=== PATIENT | male | born 1980 | race Caucasian/White ===

== ENCOUNTER → 2020-11-19 10:14 | Outpatient (BNVA) | payer OTHER, SELFPAY | PROVIDERS: PCP Family Medicine; Referring Provider Family Medicine; Visit Provider Anesthesiology Pain Medicine | DX: G89.29 Other chronic pain (principal); M54.5 Low back pain; Z79.891 Long term (current) use of opiate analgesic; Z87.891 Personal history of nicotine dependence | CPT/HCPCS: 72110; 99204 ==

== ENCOUNTER → 2021-02-02 08:28 | Outpatient (BNVA) | payer SELFPAY | PROVIDERS: PCP Family Medicine; Visit Provider Orthopaedic Surgery | DX: Z01.812 Encounter for preprocedural laboratory examination (principal); Z20.822 Contact with and (suspected) exposure to COVID-19 | CPT/HCPCS: 87635 ==

== ENCOUNTER 2021-02-08 12:55 | Observation (INO) | payer SELFPAY ==
[2021-02-05 12:30] VITALS: BMI 28.4
--- NOTE | 2021-02-05 13:24 | ANES.PREANE2 ---
Pre-Anesthetic Assessment Pre-Anesthetic Assessment: Height/Weight: Height 1.96 m Weight 108.862 kg Preop Diagnosis: l4/5 spondylolisthesis Proposed Procedure: Operation Date: 02/08/21 10:00 Proposed Procedures p PLIF L4/5 42750, 75290, 84779, 78591, 89239, 19219 M43.10 M48.061(Not Applicable) - Merritt Rocha, DO Was Beta Elver taken within 24 hours: N/A Was Clonidine taken within 24 hours: N/A Social: Social History: Tobacco and No alcohol Exam: Pre-Anes Outpt Exam: alert, oriented x 3 and regular rate & rhythm Airway: Submandibular: WNL Cervical ROM: WNL MP: 2 Dentition: Chipped Additional comments: Very poor dentition, multiple caries and missing Pulmonary: Pulmonary: COPD CV/HEM: CV/HEM: HTN Metabolic: Metabolic: Morbid obesity Musc/skel: Musc/skel: Lower Back Pain and OA/DJD Anesthetic Plan: ASA status: 3 Anesthesia: General Risk of > 500 ml blood loss (7ml/kg in children): No PFSH Anesthesia PFSH: Family History Grandmother Cancer Social History Second hand smoke exposure: No Alcohol intake: never Data Anesthesia Cardiac Studies: No Data to Display
[2021-02-08] VITALS (15 sets, daily range): BP systolic 126–175; BP diastolic 79–142; PULSE 76–106; RESP 14–19; TEMP 36.4–37; O2SAT 93–100; BMI 28.4
--- NOTE | 2021-02-08 | SCC_ITS ---
Procedure Done: 1. L4/5 Interbody fusion with posterolateral fusion 2. Instrumentation L4/5 3. Cage at L4/5 4. Laminectomy L4 5. use of autograft from same incision 6. allograft 7. Bone marrow aspirate from right iliac crest through separate incision in fascia 8. Computer navigation / stereotactic of spine 18 seconds of fluoroscopic guidance, for a cumulative dose of 39.4 mGy, was provided to Dr. Rocha by the radiology department. C-arm images of the lumbar spine were saved for the patient's permanent record. ARAVIND
--- NOTE | 2021-02-08 | XR_ITS ---
WS: [id number] XR lumbar spine 1V port 76914 REASON FOR EXAM: JOCELINE PICS FINDINGS: Multiple AP and lateral images of the thoracic spine in surgery. Localization of the L4-L5 disc space. Bilateral pedicle screw placement at L4 and L5. Interbody fusion device placed within the L4-L5 disc space. Surgical appliances appear in proper position and alignment. XR/XR lumbar spine 1V port [id number] IMPRESSION: Pedicle screw and interbody fusion device placement L4-L5.
[2021-02-08] MEDS: sodium chloride 0.9% 1,000 ML 30 ML IV (08:38)
--- NOTE | 2021-02-08 09:20 | P.ANESUD_ITS ---
Pre-Anesthetic Update Pre-Anesthetic Assessment: Date of Surgery/Procedure: 02/08/21 Preop Hilaria gnosis: l4/5 spondylolisthesis Proposed Procedure: Operation Date: 02/08/21 10:00 Proposed Procedures p PLIF L4/5 24156, 52576, 54188, 97078, 94069, 76831 M43.10 M48.061(Not Applicable) - Merritt Rocha, DO Any changes to Pre-Anesthetic Assessment?: No Last Intake: Intake Last Liquid Date 01/28/21 Last Liquid Time 20:00 Last Solid Date 02/07/21 Last Solid Time 20:00 Vitals: Temperature 97.7 F 02/08/21 08:22 Temperature Source Temporal Artery S can 02/08/21 08:22 Pulse Rate 76 02/08/21 08:22 Respiratory Rate 17 02/08/21 08:22 Blood Pressure 144/106 02/08/21 08:22 Blood Pressure Missy n 118 02/08/21 08:22 Pulse Oximetry 97 02/08/21 08:22 Oxygen Delivery Me thod 02/08/21 08:29 Exam: Pre-Anes Outpt Exam: alert, oriented x 3, clear to auscultation bilaterally and regular rate & rhythm Cardiac Studies: No Data to Display
--- NOTE | 2021-02-08 09:21 | PM.HP ---
Providers/Chief Complaint Primary Care Provider: Kenneth Rainey Chief Complaint: plif History of Present Illness Hank Grajeda is a 41 year old male is here due to low back pain Onset: [gradual Duration: [years Characteristics: [sharp, dull, achey Severity: [mild to moderate Location: [lower back Radiating symptoms: [hips Aggravating factors: [standing, walking, lifting, laying Alleviating factors: [none Neuro deficits: [] denies numbness, tingling, weakness, incontinence of bowel/bladder, saddle anesthesia. Prior tx: [pain management consult Review of Systems Narrative: General ROS: negative for weight changes, fever ENT ROS: negative for nasal congestion, drainage or bleeding, sore throat, dysphagia or ear pain Eyes: PERRL Hematological and Lymphatic ROS: negative for swollen glands or abnormal bleeding Endocrine ROS: negative for polyuria/polydpsia or new changes in weight Respiratory ROS: negative for cough, shortness of breath, or wheezing Cardiovascular ROS: negative for chest pain or dyspnea on exertion Gastrointestinal ROS: negative for reflux, abdominal pain, change in bowel habits, or black or bloody stools Musculoskeletal ROS: negative for back pain, neck pain, or joint pain or swelling except for current problem Neurological ROS: negative for TIA or stoke symptoms Skin: no rashes Medications/Allergies Home Medications Medication Instructions Recorded Confirmed Last Taken Type cyclobenzaprine 10 mg tablet 10 mg PO TID 11/19/20 02/08/21 02/07/21 History famotidine 20 mg tablet 20 mg PO DAILY 11/19/20 02/08/21 02/07/21 History gabapentin 100 mg capsule 200 mg PO BEDTIME 11/19/20 02/08/21 02/07/21 History lisinopril 20 mg tablet 20 mg PO DAILY 11/19/20 02/08/21 02/07/21 History multivitamin with minerals 1 tab PO DAILY 11/19/20 02/08/21 02/07/21 History E0748 Bone growth stimulator #1 ea 01/29/21 Unknown Rx Allergies Allergy/AdvReac Type Severity Reaction Status Date / Time tramadol Allergy ADR-Vomitin Verified 02/05/21 12:25 g PFSH Acute PFSH: Family History Grandmother Cancer Social History Second hand smoke exposure: No Alcohol intake: never Vitals/I&O/Wt Last Vital Signs Temp 97.7 F 02/08/21 08:22 Pulse 76 02/08/21 08:22 Resp 17 02/08/21 08:22 BP 144/106 02/08/21 08:22 Pulse Ox 97 02/08/21 08:22 Physical Exam Narrative: EXAM NARRATIVE: CONSTITUTIONAL: The patient is a normal appearing [] in no apparent distress. GENERAL: Patient in no acute distress. CARDIAC: Regular rate and rhythm. CHEST: Normal inspiratory effort, normal respiratory rate. ABDOMEN: Soft and nontender. SKIN: Clear, warm and intact. NEURO?PSYCH: The patient is alert and oriented to person, place and time. Sensorv /SILT Motor StrengthShoulder abduction C5 5/5Wrist extension C6 5/5Elbow extension C7 5/5Hand [employer] V[employer] Installer C8 5/5Finger abduction T15/5 Radial/ Ulnar/ Median n intact LowerSensory (SILT)Motor StrengthHin flexion L2/3Ant/inner thigh 5/5Hip adduction L2/3 5/5Knee extension L4 Lat thigh, 5/5Toe dorsiflexion L5 5/5Ankle dorsiflexion L5/ D99Ssymect flexion S1 5/5 DTRBleeps 2+Triceps 2+Brachioradialis 2+Patellar 2+Achilles 2+ MUSCULOSKELETAL: [] UPPEREXTREMITIES: The patient had full active ROM in fingers, wrist, elbow, and shoulder. The patient demonstrated ability to fully flex/extend/abduct/adduct fingers, make ok sign, cross 2nd/3rd digits, extend 1st digit fully.. Radial pulse 2+, CR<2 seconds. LOWER EXTREMITIES: Pt has full, active ROM of toes, ankle, knee, and hip. Dorsalis pedis/posterior tibialis pulses 2+, CR<2 seconds. SPINE: Skin warm, dry, intact. A&P Assessment and plan (1) Spondylolisthesis at L4-L5 level: L4/5 PLIF Status: Acute Attestations Medical Necessity Statement*: failed conservative tx Coding Level of Care Code Acute Retail Sales Specialist for [facility] Diagnoses Spondylolisthesis at L4-L5 level M43.16
--- NOTE | 2021-02-08 09:24 | P.HPUD_ITS ---
Surgery/Procedure H&P Update DATE OF PROCEDURE: February 08, 2021 DATE H&P PERFORMED: 02/08/21 PREOP DIAGNOSIS: l4/5 spondylolisthesis PLANNED PROCEDURE: Operation Date: 02/08/21 10:00 Proposed Procedures p PLIF L4/5 22903, 03098, 79579, 60448, 07155, M43.10 M48.061(Not Applicable) - Merritt Rocha, DO
--- NOTE | 2021-02-08 09:24 | W.PM.OPSUD ---
Surgery/Procedure H&P Update DATE OF PROCEDURE: February 08, 2021 DATE H&P PERFORMED: 02/08/21 PREOP DIAGNOSIS: l4/5 spondylolisthesis PLANNED PROCEDURE: Operation Date: 02/08/21 10:00 Proposed Procedures p PLIF L4/5 01890, 90702, 98595, 44824, 50984, M43.10 M48.061(Not Applicable) - Merritt Rocha, DO
[2021-02-08] MEDS: heparin, porcine 1,000 unit/mL INJ 10 mL 10000 UNIT IRRIGATION (11:06)
[2021-02-08] MEDS: vancomycin 1,000 MG SDV 1000 MG XX (12:27)
--- NOTE | 2021-02-08 13:09 | PM.OP ---
Operative Report Date of procedure: February 08, 2021 Pre-op Diagnosis: l4/5 spondylolisthesis Post-op diagnosis: same Procedure Done: 1. L4/5 Interbody fusion with posterolateral fusion 2. Instrumentation L4/5 3. Cage at L4/5 4. Laminectomy L4 5. use of autograft from same incision 6. allograft 7. Bone marrow aspirate from right iliac crest through separate incision in fascia 8. Computer navigation / stereotactic of spine Estimated blood loss (mL): 150 Condition: stable Disposition: PACU Procedure: 1. L4/5 Interbody fusion with posterolateral fusion 2. Instrumentation L4/5 3. Cage at L4/5 4. Laminectomy L4 5. use of autograft from same incision 6. allograft 7. Bone marrow aspirate from right iliac crest through separate incision in fascia 8. Computer navigation / stereotactic of spine Patient is brought to the operative suite. After undergoing anesthesia, the patient had neuro monitoring attached. Patient was then placed in the prone position on the Yuri table. All areas of impingement were well-padded. Patient was then prepped and draped in the normal sterile fashion. Skin incision was then made over the L4/5 space. Subperiosteal dissection was made out to the transverse processes of L4 and L5. Once the exposure was complete attention was then brought to placing the fiducials for the computer navigation. 2 pins were placed into the right iliac crest. It is attached to the fiducial. The fiducial was then connected. Prior to spinning the C arm the FIGS bone marrow aspirate kit was used to aspirate bone marrow aspirate from the right iliac crest. This was done by using the sharp probe to open up the bone in right iliac crest. Aspiration was performed and then the blunt probe was then used to dissect down to through the bone tunnel. An aspirating well drawn back a millimeter approximately 20 cc of bone marrow aspirate was used. Admixed with the allograft and autograft bone that will be used. The C-arm was then spun and then the information was loaded in the computer. This information was then allowed to be used to load to the gearshift and the pedicle screw. The technique for placing the pedicle screws was to use a drill followed by the gearshift probe attached to the computer navigation. Followed by the ball probe to feel the superior inferior medial lateral sanz of the pedicles. Then placement of the screws using the computer navigation. Was done at each pedicle. Screws were placed at L4 bilaterally and L5. Next attention was brought to performing the laminectomy of L4. This was done using the high-speed bur Kerrisons and curettes. Once the lamina was removed and then attention was brought to performing a partial facetectomy on the contralateral side. This was done again using the high-speed bur curettes and Kerrisons. The ligamentum flavum was taken down bilaterally from L4 to L5. Attention was then brought to the facet on the ipsilateral side. The facet was taken down. The L5 nerve was decompressed as it passed around the L5 pedicle. The laminectomy was done for purposes of decompressing the nerve as well as placement of the cage. The L4 nerve was identified as it traversed through the L4/5 foramen. The thecal sac was identified and retracted. The L4/5 disc base was identified. Using a knife the disc base was opened. And then sequential savanah were placed. The first shaver was a 6 and the last shaver was a 10. Using a pituitary and down going curette the endplates were scraped and disc material was removed from the space. Once adequate decompression of the disc base was felt to be had. Osteoamp sponge was packed into the anterior aspect of the disc base. Then a size 10 cage from [employer] was placed after packing osteoamp into the cage. While placing the cage the thecal sac and L5 nerve was protected. C arm was used to ensure that the cages placed in the appropriate position. Attention was then brought to attaching the rods to the screws placed in the L4 bilaterally and L5. Caps were torqued into position. Locking the construct in place. Wound was copiously irrigated and then attention was brought to decorticating the facets and transverse processes laterally. Bone that was taken down from the lamina was used along with osteoamp fibers and sponges were packed into the lateral gutters along the facet joints. This was done bilaterally. Wound was then closed in a layered fashion starting with the thoracolumbar fascia. 0-vicryl was used the sub cutaneous tissue was closed with 2-0 vicryl and skin with 4-0 monocryl. Glue was then used to seal the skin and a steril dressing was applied. Patient was then placed in the supine position. The endotracheal tube was removed and patient was transferred to the PACU in stable condition.
--- NOTE | 2021-02-08 13:27 | SUR.PHASEI ---
1313 PT TO PACU WILD TRYING TO GET UP SWINGING FISTS AT STAFF, YELLING (GET OFF OF ME, LET ME UP) IV OUT PER PT, PT UNRESPONSIVE TO REORIENTATION, UNABLE TO GET VS, PT COLOR PINK WARM , GOOD RESP EFFORT PT ABLE TO YELL LOUDLY AND MOVES ALL EXT PER SELF.
[2021-02-08] MEDS: HYDROmorphone 1 mg/mL INJ 1 mL 0.5 MG IVP (13:47)
--- NOTE | 2021-02-08 14:43 | SUR.PHASEI ---
1400 PT AWAKE ALERT VERY COOPERATIVE SEE PAIN MED GIVEN EARLIER IV ADJUSTED AND RETAPED TO RT HAND NOW PATENT SEE MED GIVEN, VSS PT STATES PAIN IS BETTER, PT DOZES IF NOT DISTURBED REPORT CALLED TO FLOOR AND PT FATHER UPDATED AND WILL WALK UP TO ROOME 267 WITH RN AND PT TO ROOM PER BED.
[2021-02-08] MEDS: ketorolac 30 mg/mL INJ IVP ×2 (14:59→20:37)
[2021-02-08] MEDS: lactated ringers 1,000 ML 90 ML IV (14:59)
[2021-02-08] MEDS: cyclobenzaprine 10 mg Tablet PO ×2 (15:00→20:28)
[2021-02-08] MEDS: HYDROcodone-acetaminophen 5-325 mg Tablet PO ×3 (15:00→23:23)
--- NOTE | 2021-02-08 15:00 | ANE.PACU2 ---
Inpatient post-anesthesia follow up: Airway intact: Yes Vital signs: Temperature 98.6 F Pulse Rate 101 Respiratory Rate 14 Blood Pressure 126/79 Pulse Oximetry 98 Oxygen Delivery Me thod Nasal Cannula Oxygen Flow Rate 3 Fraction of Inspir ed Oxygen Hydration adequate: Yes Nausea and vomiting: No Pain level: 2 Mental status: Baseline
[2021-02-08] MEDS: docusate sodium 100 mg Capsule PO (17:34)
[2021-02-08] MEDS: gabapentin 100 mg Capsule 200 MG PO (20:28)
[2021-02-09] VITALS: BP 132/68; PULSE 96; RESP 18; TEMP 36.4; O2SAT 96
[2021-02-09] MEDS: lactated ringers 1,000 ML 90 ML IV (01:53)
[2021-02-09] MEDS: HYDROcodone-acetaminophen 5-325 mg Tablet PO ×2 (03:48→09:13)
[2021-02-09 04:00] VITALS: BP 128/71; PULSE 94; RESP 18; TEMP 36.6; O2SAT 95
--- NOTE | 2021-02-09 05:01 | PC.NURSE ---
SHIFT SUMMARY Has had a good night. Has received po Hydrocodone X3 q4h and IV Toradol X2 tonight for back pain. Dressing to lower back is D&I. Hemovac drain in place and has had 110ml sanguinous drainage this shift. Taking po fluids well and has urinated several times with good urine output. Gets up to bathroom and uses urinal. Has also ambulated in [place] and been up in chair. IV fluids infusing at 90ml/hr rate and receiving postop IV antibiotics as ordered
[2021-02-09] MEDS: ketorolac 30 mg/mL INJ IVP (05:05)
--- NOTE | 2021-02-09 07:14 | P.DS_ITS ---
Discharge Providers Date of Admission: 02/08/21 12:55 Date of Discharge: February 09, 2021 Attending Provider at Admission: Merritt Rocha DO Attending Provider at Discharge: Merritt Rocha DO Primary Care Provider: Kenneth Rainey Diagnoses at Discharge Discharge Diagnosis (1) Spondylolisthesis at L4-L5 level: Status: Acute Reason for Visit Reason for Visit: plif Hospital Course Hospital Course Patient sitting in chair comfortably no complaints at this time. Discharge Data Data Completed and Pending: Completed Studies During Hospitalization Category Date Time Status XR lumbar spine 1 V port [id number] Routi ne Exams 02/08/21 Completed Pending at discharge Category Date Time Status C-arm Fluoroscopy 13578 Routine Exams 02/08/21 08:22 Taken Vitals: Last Vital Signs Temp 97.9 F 02/09/21 04:00 Pulse 94 02/09/21 04:00 Resp 18 02/09/21 04:00 BP 128/71 02/09/21 04:00 Pulse Ox 95 02/09/21 04:00 Discharge Plan Discharge Patient Disposition: Home Condition: Stable Prescriptions: New hydrocodone-acetaminophen 5-325 mg tablet 1 - 2 tab PO .Q4-6H Qty: 40 RF: 0 Continued cyclobenzaprine 10 mg tablet 10 mg PO TID RF: 0 gabapentin 100 mg capsule 200 mg PO BEDTIME RF: 0 lisinopril 20 mg tablet 20 mg PO DAILY RF: 0 famotidine 20 mg tablet 20 mg PO DAILY RF: 0 multivitamin with minerals [Men's One Daily] Tablet 1 tab PO DAILY RF: 0 (DME) E0748 Bone growth stimulator See Rx Instructions .Route .MEDSUPPLY Qty: 1 RF: 0 Discharge Orders: Discharge Order (Routine); Ordered 02/09/21 Ordered By: Merritt Rocha Discharge Diet: Advance as tolerated Discharge Activity: Limit activity as instructed Patient Instructions: Opioid Safety Activity Restrictions/Additional Instructions: Thank you for [facility] for your care! The following is a list of instructions, from your provider, to follow upon your discharge to ensure you have the optimal recovery from your recent injury orsurgery. Follow-up care is a harrell part of your treatment and safety. Be sure to make and go to all appointments, and call your doctor if you are having problems. If you do not already have a follow-up appointment made, call Dr. Rocha office in the next 1-3 days to make follow up appointment for 1 weeks at [phone]. It is also a good idea to know your test results and keep a list of the medicines you take. Medications will be prescribed for you at your provider's discretion. These medications are to be used as instructed; if they are taken more often that prescribed they will not be refilled early and in most cases will not be refilled at all. > When a refill is needed,you should contact margie finley 2-3 business days before your prescription runs out. Medications will NOT be refilled by aviation safety equipment technician providers after hours! > Many pain medications contain Tylenol (Acetaminophen). Do not consume more than 4,000 mg of Tylenol per day in total with any combination ofmedications. > Pain medications can cause constipation. Please use an over the counter stool softener as directed, while taking pain medications. Consulty our local pharmacist with questions or recommendations on stool softeners. If constipation persists, contact our office or your primary care provider. > While under our care,you are not to receive pain medications or other controlled substances from any other provider unless our office is notified and approves. Any attempts to do so will result in refusal to prescribe any further pain medications and possible dismissal from our practice. ? Keep Dressing on at al times. We will change i clinic ? Showering is permitted, however we ask that you do not take a bath, sit in a whirlpool / Jacuzzi, or go swimming for 1 month. For only the first 2 days after surgery, lt wilt be necessary for you to cover your wound/dressing with plastic and tape to keep it dry. ? Walking is essential for the healing process after surgery. We would like you to slowly advance your walking. This should be done on relatively flat clear ground (inside or out) or can be done on a treadmill. Remember this goal does not have to happen all at once, slowly increase your distance and duration. This can be broken into more more than one walk per day as tolerated. Patients who walk as directed after surgery rarely require Physical Therapy. In the unlikely event this issue arises your provider will direct hospital staff to make the appropriate arrangements. ? No lifting over 5 pounds {a gallon of milk) or bending/twisting until further notice. Each of these activities places an unnecessary amount of stress onto the body and can impede the delicate healing process. > Instead of bending at the waist, keep your back straight and bend at the knees. > Instead of twisting your torso, keep your back straight and turn your entire body with your feet. ? You may sleep in any position which makes you comfortable. Many patients find comfort sleeping in a reclining chair. It is not abnormal to have difficulty sleeping for the first several weeks following your surgery. We recommend trying Benadry! or Tylenol PM as directed to help with your sleeping difficulties. Both medications are over the counter and available withoutprescription. ? NO SMOKING!!! Smoking dramatically increases the probability of developing postoperative wound infections. ? Common complaints after lumbar and/or thoracic spine surgery include, but are not limited to: numbness and/or tingling in the legs, pain around the incision and surrounding tissues, muscle spasms, or stiffness of the middle to low back. Contact our office if these symptoms persist or if an acute change occurs. ? No driving for the first 3-5days, and not while taking narcotics [] until seen at your follow-up appointment and cleared. There are no restrictions for riding on short trips, however if you take a longer trip, arrangements should be made to make regular stops to get out of the vehicle and stretch . ? Swelling is an unfortunate event that will take place with any surgery and is the primary source of your postoperative discomfort. While walking and regular approved activities helps control inflammation, there are additional steps you can take to minimizeswelling. > Place ice over the surgical site and surrounding tissue for twenty min utes, followed by applying a low/medium heat (heating pad) for an additional twenty minutes every 1-2 hours as needed for painrelief. > You may use of over the counter anti-inflammatory medications (Ibuprofen, Motrin, Aleve, Advil, etc) as directed on the package label. These types of medicines wm significantly reduce the amount of discomfort you experience after surgery from swelling. It should be noted that if you have and allergy to any of these medications, or a history of ulcers or kidney disease you should consult you primary care provider prior to starting these medications. Discharge Attestations Time Spent in Discharge Care*: less than 30 min Quality Metrics Clinical Quality Measures During this hospital stay, did patient experience: None Coding Level of Care Code Acute Chg FW DC note Diagnoses Spondylolisthesis at L4-L5 level M43.16
--- NOTE | 2021-02-09 07:15 | P.DS_ITS ---
Discharge Providers Date of Admission: 02/08/21 12:55 Date of Discharge: February 09, 2021 Attending Provider at Admission: Merritt Rocha DO Attending Provider at Discharge: Merritt Rocha DO Primary Care Provider: Kenneth Rainey Diagnoses at Discharge Discharge Diagnosis (1) Spondylolisthesis at L4-L5 level: Status: Acute Reason for Visit Reason for Visit: plif Hospital Course Hospital Course Patient admitted on 02/08/2021. He had a posterior lumbar interbody fusion at L4-5. His stay was uneventful. He will be discharged on 02/09/2021.. Physical Exam Narrative: EXAM NARRATIVE: Patient sitting in chair comfortably no complaints at this time Discharge Data Data Completed and Pending: Completed Studies During Hospitalization Category Date Time Status XR lumbar spine 1 V port 70740 Routi ne Exams 02/08/21 Completed Pending at discharge Category Date Time Status C-arm Fluoroscopy 85847 Routine Exams 02/08/21 08:22 Taken Vitals: Last Vital Signs Temp 97.9 F 02/09/21 04:00 Pulse 94 02/09/21 04:00 Resp 18 02/09/21 04:00 BP 128/71 02/09/21 04:00 Pulse Ox 95 02/09/21 04:00 Discharge Plan Discharge Patient Disposition: Home Condition: Stable Prescriptions: New hydrocodone-acetaminophen 5-325 mg tablet 1 - 2 tab PO .Q4-6H Qty: 40 RF: 0 Continued cyclobenzaprine 10 mg tablet 10 mg PO TID RF: 0 gabapentin 100 mg capsule 200 mg PO BEDTIME RF: 0 lisinopril 20 mg tablet 20 mg PO DAILY RF: 0 famotidine 20 mg tablet 20 mg PO DAILY RF: 0 multivitamin with minerals [Men's One Daily] Tablet 1 tab PO DAILY RF: 0 (DME) E0748 Bone growth stimulator See Rx Instructions .Route .MEDSUPPLY Qty: 1 RF: 0 Discharge Orders: Discharge Order (Routine); Ordered 02/09/21 Ordered By: Merritt Rocha Discharge Diet: Advance as tolerated Discharge Activity: Limit activity as instructed Patient Instructions: Opioid Safety Activity Restrictions/Additional Instructions: Thank you for [facility] for your care! The following is a list of instructions, from your provider, to follow upon your discharge to ensure you have the optimal recovery from your recent injury orsurgery. Follow-up care is a harrell part of your treatment and safety. Be sure to make and go to all appointments, and call your doctor if you are having problems. If you do not already have a follow-up appointment made, call Dr. Rcoha office in the next 1-3 days to make follow up appointment for 1 weeks at [phone]. It is also a good idea to know your test results and keep a list of the medicines you take. Medications will be prescribed for you at your provider's discretion. These medications are to be used as instructed; if they are taken more often that p rescribed they will not be refilled early and in most cases will not be refilled at all. > When a refill is needed,you should contact margie finley 2-3 business days before your prescription runs out. Medications will NOT be refilled by contact center representative providers after hours! > Many pain medications contain Tylenol (Acetaminophen). Do not consume more than 4,000 mg of Tylenol per day in total with any combination ofmedications. > Pain medications can cause constipation. Please use an over the counter stool softener as directed, while taking pain medications. Consulty our local pharmacist with questions or recommendations on stool softeners. If constipation persists, contact our office or your primary care provider. > While under our care,you are not to receive pain medications or other controlled substances from any other provider unless our office is notified and approves. Any attempts to do so will result in refusal to prescribe any further pain medications and possible dismissal from our practice. ? Keep Dressing on at al times. We will change i clinic ? Showering is permitted, however we ask that you do not take a bath, sit in a whirlpool / Jacuzzi, or go swimming for 1 month. For only the first 2 days after surgery, lt wilt be necessary for you to cover your wound/dressing with plastic and tape to keep it dry. ? Walking is essential for the healing process after surgery. We would like you to slowly advance your walking. This should be done on relatively flat clear ground (inside or out) or can be done on a treadmill. Remember this goal does not have to happen all at once, slowly increase your distance and duration. This can be broken into more more than one walk per day as tolerated. Patients who walk as directed after surgery rarely require Physical Therapy. In the unlikely event this issue arises your provider will direct hospital staff to make the appropriate arrangements. ? No lifting over 5 pounds {a gallon of milk) or bending/twisting until further notice. Each of these activities places an unnecessary amount of stress onto the body and can impede the delicate healing process. > Instead of bending at the waist, keep your back straight and bend at the knees. > Instead of twisting your torso, keep your back straight and turn your entire body with your feet. ? You may sleep in any position which makes you comfortable. Many patients find comfort sleeping in a reclining chair. It is not abnormal to have difficulty sleeping for the first several weeks following your surgery. We recommend trying Benadry! or Tylenol PM as directed to help with your sleeping difficulties. Both medications are over the counter and available withoutprescr iption. ? NO SMOKING!!! Smoking dramatically increases the probability of developing postoperative wound infections. ? Common complaints after lumbar and/or thoracic spine surgery include, but are not limited to: numbness and/or tingling in the legs, pain around the incision and surrounding tissues, muscle spasms, or stiffness of the middle to low back. Contact our office if these symptoms persist or if an acute change occurs. ? No driving for the first 3-5days, and not while taking narcotics [] until seen at your follow-up appointment and cleared. There are no restrictions for riding on short trips, however if you take a longer trip, arrangements should be made to make regular stops to get out of the vehicle and stretch . ? Swelling is an unfortunate event that will take place with any surgery and is the primary source of your postoperative discomfort. While walking and regular approved activities helps control inflammation, there are additional steps you can take to minimizeswelling. > Place ice over the surgical site and surrounding tissue for twenty minutes, followed by applying a low/medium heat (heating pad) for an additional twenty minutes every 1-2 hours as needed for painrelief. > You may use of over the counter anti-inflammatory medications (Ibuprofen, Motrin, Aleve, Advil, etc) as directed on the package label. These types of medicines wm significantly reduce the amount of discomfort you experience after surgery from swelling. It should be noted that if you have and allergy to any of these medications, or a history of ulcers or kidney disease you should consult you primary care provider prior to starting these medications. Discharge Attestations Time Spent in Discharge Care*: less than 30 min Quality Metrics Clinical Quality Measures During this hospital stay, did patient experience: None Coding Level of Care Code Acute g [facility] note Diagnoses Spondylolisthesis at L4-L5 level M43.16
[2021-02-09 07:37] VITALS: BP 117/81; PULSE 85; RESP 18; TEMP 36.8; O2SAT 97
[2021-02-09] MEDS: cyclobenzaprine 10 mg Tablet PO (08:05)
[2021-02-09] MEDS: lisinopril 20 mg Tablet PO (08:06)
[2021-02-09] MEDS: docusate sodium 100 mg Capsule PO (08:06)
[2021-02-09] MEDS: famotidine 20 mg Tablet PO (08:06)
--- NOTE | 2021-02-09 10:06 | PC.NURSE ---
Addendum entered by Brittaney Leal RN 02/09/21 10:22: Hemovac removed by RN prior to discharge. dressing reinforced, and clean, and dry at time of discharge. Original Note: patient verbalized understanding of follow up instructions, home medications, and follow up appointments.
[2021-02-09 10:24] VITALS: BP 117/81; PULSE 85; RESP 18; TEMP 36.8; O2SAT 97
--- NOTE | 2021-02-12 08:31 | PC.SOCIAL ---
discharge follow up call made, called patient yesterday and today, message left.
== END 2021-02-09 10:24 | disposition home or self-care (01) ==
LOC: MEDSURG 02-09 07:13
PROVIDERS: Admitting Provider Orthopaedic Surgery; PCP Family Medicine; Visit Provider Orthopaedic Surgery
PROC: (CPT 22612; principal; 2021-02-08 09:50)
DX: M43.16 Spondylolisthesis, lumbar region (principal); J44.9 Chronic obstructive pulmonary disease, unspecified; I10 Essential (primary) hypertension
CPT/HCPCS: 20930; 20939; 22633; 22840; 22853; 61783; 63047; 72020; 76000; 96365; 97161; C1713; G0378; J0690; J1100; J1170; J1644; J1885; J2370; J2405; J2704; J3010; J3370; J3490; J7030

== ENCOUNTER → 2021-03-23 12:54 | Outpatient (BNVA) | payer SELFPAY | PROVIDERS: PCP Family Medicine; Visit Provider Orthopaedic Surgery | DX: Z48.89 Encounter for other specified surgical aftercare (principal); Z47.89 Encounter for other orthopedic aftercare | CPT/HCPCS: 72100 ==

== ENCOUNTER → 2021-05-04 13:26 | Outpatient (BNVA) | payer SELFPAY | PROVIDERS: PCP Family Medicine; Visit Provider Orthopaedic Surgery | DX: Z48.89 Encounter for other specified surgical aftercare (principal) | CPT/HCPCS: 72100 ==

== ENCOUNTER → 2021-11-04 11:55 | Outpatient (BNVA) | payer SELFPAY | PROVIDERS: PCP Family Medicine; Visit Provider Orthopaedic Surgery | DX: M54.9 Dorsalgia, unspecified (principal); Z98.890 Other specified postprocedural states; Z98.1 Arthrodesis status | CPT/HCPCS: 72100; 99213 ==

== ENCOUNTER → 2022-06-22 13:27 | Outpatient (BNVA) | payer OTHER, SELFPAY | PROVIDERS: PCP Family Medicine; Visit Provider Orthopaedic Surgery | DX: S62.336A Displaced fracture of neck of fifth metacarpal bone, right hand, initial encounter for closed fracture (principal); W22.09XA Striking against other stationary object, initial encounter | CPT/HCPCS: 73130 ==

== ENCOUNTER 2022-06-22 16:01 | Outpatient (CLI) | payer OTHER, SELFPAY | END 2022-06-22 16:02 | disposition home or self-care (01) | LOC: SPT 16:01 | PROVIDERS: PCP Family Medicine; Visit Provider Orthopaedic Surgery | DX: Z46.89 Encounter for fitting and adjustment of other specified devices (principal); S62.306D Unspecified fracture of fifth metacarpal bone, right hand, subsequent encounter for fracture with routine healing; X58.XXXD Exposure to other specified factors, subsequent encounter | CPT/HCPCS: 97760; L3984 ==

== ENCOUNTER → 2022-07-20 14:04 | Outpatient (BNVA) | payer OTHER, SELFPAY | PROVIDERS: PCP Family Medicine; Visit Provider Nurse Practitioner Family | DX: S62.306D Unspecified fracture of fifth metacarpal bone, right hand, subsequent encounter for fracture with routine healing (principal); X58.XXXD Exposure to other specified factors, subsequent encounter | CPT/HCPCS: 73130 ==

== ENCOUNTER → 2022-11-29 14:30 | Outpatient (BNVA) | payer OTHER, SELFPAY | PROVIDERS: PCP Family Medicine; Referring Provider Family Medicine; Visit Provider Student in an Organized Health Care Education/Training Program | DX: M25.522 Pain in left elbow (principal); G56.22 Lesion of ulnar nerve, left upper limb; G56.02 Carpal tunnel syndrome, left upper limb | CPT/HCPCS: 73080 ==

== ENCOUNTER 2022-12-19 09:36 | Day surgery (SDC) | payer OTHER, SELFPAY ==
[2022-12-16 13:33] VITALS: BMI 27.5
[2022-12-19] VITALS (11 sets, daily range): BP systolic 91–121; BP diastolic 68–94; PULSE 70–83; RESP 12–177; TEMP 36.6–36.9; O2SAT 95–99
[2022-12-19] MEDS: ketorolac 30 mg/mL INJ IVP (10:12)
[2022-12-19] MEDS: acetaminophen 1,000 MG/100 ML PIGGYBACK 400 MG IV (10:12)
[2022-12-19] MEDS: sodium chloride 0.9% 1,000 ML 30 ML IV (10:18)
--- NOTE | 2022-12-19 10:20 | W.PM.OPSUD ---
Surgery/Procedure H&P Update DATE OF PROCEDURE: December 19, 2022 DATE H&P PERFORMED: 11/29/22 CHANGES TO PREVIOUS DOCUMENTATION: None. No change in HPI visit from 11/29/2022. Patient has findings consistent with left carpal tunnel syndrome and left cubital tunnel syndrome. Through shared decision making elects to proceed with left carpal tunnel release, left cubital tunnel release with possible ulnar nerve transposition. Patient understands agrees with current plan. All questions answered. PREOP DIAGNOSIS: Left Carpal Tunnel syndrome left cubital tunnel syndrome PRIMARY INDICATION FOR PROCEDURE: Left carpal tunnel syndrome, left cubital tunnel syndrome PLANNED PROCEDURE: Operation Date: 12/19/22 12:10 Proposed Procedures p Left carpal tunnel release 65863, Left cubital tunnel release with possible ulnar nerve transposition 90029,G56.22,G56.02,M25.529(Left) - DO arvin Haines Cubital Tunnel Release(Left) - DO arvin Haines Ulnar Nerve Transposition(Left) - Guillermo Crenshaw DO
[2022-12-19 10:37] LABS: Anion Gap 15.3 (5-19); Blood Urea Nitrogen 11 mg/dL (6-20); Calcium 9.6 mg/dL (8.5-10.5); Carbon Dioxide 24 mmol/L (22-29); Chloride 102 mmol/L (98-107); Glomerular Filtration Rate 105.5 mL/min (90-130); Glucose 102 mg/dL (65-115); Osmolality Calculated 284 mOsm/kg (285-295); Potassium 4.3 mmol/L (3.5-5.1); Sodium 137 mmol/L (136-145)
--- NOTE | 2022-12-19 10:41 | ANES.PREANE2 ---
Pre-Anesthetic Assessment Height/Weight: Height 1.96 m Weight 105.233 kg Temp Pulse Resp BP Pulse Ox O2 Del Method 97.8 F 82 18 115/72 95 Room Air 12/19/22 10:06 12/19/22 10:06 12/19/22 10:06 12/19/22 10:06 12/19/22 10:06 12/19/22 10:06 Preop Diagnosis: Left Carpal Tunnel syndrome left cubital tunnel syndrome Operation Date: 12/19/22 12:10 Proposed Procedures p Left carpal tunnel release 75097, Left cubital tunnel release with possible ulnar nerve transposition 85440,G56.22,G56.02,M25.529(Left) - Guillermo Den, DO s Cubital Tunnel Release(Left) - Guillermo Kingfisher, DO s Ulnar Nerve Transposition(Left) - Guillermo Den, DO Familial anesthetic complications: none Was Beta Elver taken within 24 hours: N/A Was Clonidine taken within 24 hours: N/A Last intake: Intake Last Liquid Date 12/18/22 Last Liquid Time 17:00 Last Solid Date 12/18/22 Last Solid Time 17:00 Social No alcohol and No tobacco (h/o smoking) Exam alert, oriented x 3 and regular rate & rhythm Airway Submandibular: within normal limits Cervical ROM: within normal limits Mallampati: Class I Dentition: chipped Comments: Comments: Very poor dentition, multiple missing Pulmonary Chronic Obstructive Pulmonary Disease CV/HEM Hypertension Musc/skel Lower Back Pain and Osteoarthritis/DJD Neuropsych chronic pain/opioid Anesthetic Plan ASA status: 3 Anesthesia: General Medications/Allergies Home Medications Medication Instructions Recorded Confirmed Last Taken Type lisinopril 20 mg tablet 20 mg PO DAILY 11/19/20 12/19/22 12/18/22 History gabapentin 100 mg capsule 100 mg PO BEDTIME 12/16/22 12/19/22 12/18/22 History hydrocodone 5 mg-acetaminophen 325 1 tab PO Q6H PRN pain 5 days #20 12/19/22 Unknown Rx mg tablet tabs ondansetron 4 mg disintegrating 4 mg PO Q8H PRN nausea and 12/19/22 Unknown Rx tablet vomiting 3 days #9 tabs Allergies Allergy/AdvReac Type Severity Reaction Status Date / Time tramadol Allergy ADR-Vomitin Verified 11/29/22 14:26 g Current Medications Generic Name Dose Route Start Last Admin Trade Name Esther PRN Reason Stop Dose Admin Sodium Chloride 1,000 mls @ 30 mls/hr 12/19/22 10:00 12/19/22 10:18 Sodium Chloride 0.9% IV 12/20/22 09:59 30 mls/hr .Q24H DHAVAL Administration PFSH Anesthesia Family History Grandmother Cancer Social History Smoking and tobacco status: former smoker Second hand smoke exposure: No Alcohol intake: never Data Anesthesia 12/19/22 10:14 BMP 12/19/22 10:14 Sodium 137 Potassium 4.3 Chloride 102 Carbon Dioxide 24 BUN 11 Creatinine 0.8 Glucose 102 Calcium 9.6 Cardiac Studies: No Data to Display
[2022-12-19] MEDS: ceFAZolin 2,000 MG in sodium chloride 0.9% (plus) 50 ML 100 MG IV (10:45)
[2022-12-19] MEDS: BUPivacaine 0.5% INJ 30 mL INJECTION (11:15)
[2022-12-19] MEDS: ROPivacaine 0.5% SDV 30 mL 25 MG INJECTION (11:15)
--- NOTE | 2022-12-19 12:04 | PM.OP2 ---
Brief Operative Note Date of procedure: 12/19/22 Pre-op diagnosis: Left carpal tunnel syndrome and left cubital tunnel syndrome Post-op diagnosis: same Procedure Done: Left carpal tunnel release and left cubital tunnel release Surgeon: Guillermo Crenshaw Estimated blood loss (mL): 5 Complications: none Post-op Plan: Postop Hand Orthopedic discharge instructions: Patient should leave dressing on in place for 72 hours after that may remove dressing, clean incision with warm soapy water pat dry and redress with a dry dressing or Band-Aid. Encourage finger range of motion as tolerated Gentle range of motion of elbow May weight-bear as tolerated to the operative extremity Elevation and ice as needed for pain and swelling Take pain medication as prescribed Take antinausea medication as needed May supplement with [id number] anti-inflammatories (make sure not to take more than 3000 mg of Tylenol in 1 day as your pain medication does have Tylenol in it) Follow-up in the orthopedic office in 2 weeks Contact the office for any questions or concerns Condition: stable Disposition: PACU Coding Level of Care Code Acute Code for Casey Haynes
--- NOTE | 2022-12-19 12:05 | PM.OP ---
Operative Report Date of procedure: December 19, 2022 Pre-op diagnosis: Preop Diagnosis Left Carpal Tunnel syndrome left cubital tunnel syndrome Health Care Facilities Inspector: Javy Crenshaw PA-C PA-C was necessary for execution of this case for assistance with retraction and protection of neurovascular structures as well as to position the arm and hold it in place for appropriate dissection, assistance also with wound closure. Procedure: Postop Diagnosis: Same Procedure done: Left carpal tunnel release Left?cubital tunnel tunnel release (ulnar nerve decompression at elbow) Surgeon: Guillermo Crenshaw, DO Estimated blood loss: 5 mL Tourniquet? 21 minutes IV fluids: 600 mL Complications: None Findings: See operative report narrative Condition: stable Disposition: same day Brief History: Patient's been seen and worked up in the outpatient setting and findings consistent with preoperative diagnosis.? Patient has left carpal tunnel syndrome as well as left?cubital tunnel syndrome which has been worked up in the outpatient setting has physical exam findings consistent with this as well as confirmatory nerve conduction/EMG nerve conduction study consistent with diagnosis.? Patient's failed conservative treatment.? As result through shared decision making agreed to proceed with? left carpal tunnel and left?cubital tunnel release we talked about treatment options as far as nonoperative and operative intervention.? Understands risk benefits complication alternatives surgical nonsurgical treatment options.? Understanding his risks he agrees to proceed with surgical intervention. Understanding these risks he agrees to proceed with surgery.? Consent obtained in office. Procedure: Patient seen evaluate in the preoperative holding area.? Consent was reviewed and signed with patient.? Correct extremity marked.? Patient seen evaluated by anesthesia department once cleared for surgery was then taken back to the operative suite placed in supine position all bony prominences well-padded patient properly secured to bed.? Left upper extremity placed onto armboard.? Nonsterile tourniquet applied left upper arm.? Patient then underwent anesthesia per the anesthesia department.? Patient's left upper extremity was then prepped and draped in standard orthopedic fashion.? Final timeout performed.? Patient received appropriate preoperative antibiotics. Esmarch was used exsanguinate the left upper extremity.? Tourniquet was insufflated to 250 mmHg. I started with the carpal tunnel release first.? I made a standard open carpal tunnel release starting with the distal most extent in the palm at the Milligan's cardinal line and the incision line was made in line with the fourth ray and ended just distal to the wrist crease.? Sharp scalpel incision was made through skin and subcutaneous tissue I then utilizing self retainer then began to dissect with dissection scissors split longitudinally the palmar fascia.? Next I then utilizing my photographer assistant Rupesh retractors subsequently utilizing scalpel feathered through the palmaris brevis as well as through the transverse carpal ligament distally.? Once I encountered the floor of the transverse carpal ligament and entered into the carpal tunnel I then switched to dissection scissors.? Carefully released the distal extent of the transverse carpal ligament to the palmar fat.? Care was to protect the recurrent branch and not injured this during this part of the case.? Next I then placed a [place]wood underneath the transverse carpal ligament proximally to protect the nerve in the carpal tunnel contents.? And then I subsequently under loupe magnification utilize my dissection scissors to release the transverse carpal ligament into the antebrachial fascia under direct visualization with care to keep my scissors with a curved ulnarly away from the palmar cutaneous branch.? The transverse carpal was then completely decompressed proximally and a Highwood was then placed both distally and proximally throughout the carpal tunnel and had complete decompression of the nerve.? The nerve did appear to have hourglass shape as it went through the carpal tunnel.? With significant irritation noted around the nerve.? No masses were noted within the contents of the carpal tunnel.? This completed the carpal tunnel release and then I subsequently irrigated the wound bed and placed a wet [place] into the incision for later closure. Next marked out the landmarks of the right elbow of the medial epicondyle and olecranon and made a curvilinear incision following the course of the ulnar nerve at the medial aspect of the elbow.? Sharp scalpel incision was made through skin and subcutaneous tissue.? Next I switched to Littler dissection scissors and spread in plane of the medial antebrachial cutaneous nerve branching which was protected throughout this part of the dissection.? Then I directly came down over the fascia and identified the 2 heads of the FCU fascia and split this right in the middle and subsequently identified my ulnar nerve distally.? This was then completely released distally under direct visualization and loupe magnification.? Once the nerve was then identified I then subsequently tracked this proximally and released this through Martinez's ligament as well as complete decompression of the nerve proximally all the way past the intermuscular septum.? The nerve was completely released and decompressed both proximally and distally.? Ulnar nerve neurolysis performed and completed both proximally and distally with dissection scissors.? I then took the elbow through range of motion and there was no instability or subluxating of the ulnar nerve.? This completed?cubital tunnel release.? ?Next the wound bed was thoroughly irrigated.? Tourniquet was deflated.? Hemostasis was satisfactory at the?cubital tunnel release surgery site. I then inspected the carpal tunnel incision and this was found to have satisfactory hemostasis and all this was maintained through bipolar electrocautery.? At this point time I sequentially closed?cubital tunnel site with 3-0 Vicryl suture and skin with a running horizontal mattress nylon stitch.? ? The carpal tunnel release incision was then closed in standard interrupted mattress fashion.? Dressing was Xeroform 4 x 4's ABD Curlex soft roll and an Stephane wrap has a bulky soft dressing. Patient was then awakened from anesthesia and taken to PACU in stable condition. Disposition: Patient taken to PACU in stable condition recovering well.? Patient will receive appropriate discharge instructions as well as pain medication postoperatively.? We will follow-up with me in the office in 2 weeks.? Patient understands agrees with current plan.? All questions answered.? Patient understands if any questions or concerns and contact the office for follow-up appointment
--- NOTE | 2022-12-19 12:07 | PM.PACU ---
PACU note Narrative: Patient is a 42-year-old male that just underwent a left carpal tunnel release and left cubital tunnel release. Patient transferred to PACU in stable condition. Pain is well controlled. Dressing on hand and elbow is dry and in place. Patient has good perfusion to fingers and is able to move fingers. Normal cap refill under 2 seconds. Patient has normal elbow range of motion. Unable to assess sensation due to residual localized anesthetic. Exam: awake Disposition: discharged
--- NOTE | 2022-12-19 17:01 | ANE.PACU2 ---
Inpatient post-anesthesia follow up: Airway intact: Yes Vital signs: Temperature 97.8 F Pulse Rate 75 Respiratory Rate 18 Blood Pressure 121/87 Pulse Oximetry 97 Oxygen Delivery Me thod Room Air Oxygen Flow Rate 6 Fraction of Inspir ed Oxygen Hydration adequate: Yes Nausea and vomiting: No Pain level: 2 Mental status: Baseline
== END 2022-12-19 13:11 | disposition home or self-care (01) ==
PROVIDERS: Anesthesiology; PCP Family Medicine; Visit Provider Student in an Organized Health Care Education/Training Program
PROC: (CPT 64721; principal; 2022-12-19 12:10)
PROC: (CPT 64718; 2022-12-19 12:10)
DX: G56.02 Carpal tunnel syndrome, left upper limb (principal); G56.22 Lesion of ulnar nerve, left upper limb; J44.9 Chronic obstructive pulmonary disease, unspecified; I10 Essential (primary) hypertension; G89.29 Other chronic pain; Z79.891 Long term (current) use of opiate analgesic; Z87.891 Personal history of nicotine dependence
CPT/HCPCS: 64718; 64721; 36415; 80048; J0131; J0690; J1885; J2704; J2795; J3010; J3490; J7030